=== PATIENT | male | born 1945 | race Caucasian/White ===

== ENCOUNTER 2019-05-25 08:04 | Inpatient (IN) | payer OTHER, MEDICARE ==
--- NOTE | 2019-05-13 09:36 | PREOP ---
DATE OF SURGERY: 06/25/2019 DATE OF DICTATION: 03/29/2019 REASON FOR SURGERY: Chronically incarcerated ventral hernia. BRIEF HISTORY: This is a 74-year-old gentleman who for the past year has had a known chronically incarcerated ventral hernia. The patient states it has gotten a little bit larger and he now wishes to have this repaired. He also states it occasionally causes discomfort at times. He has had no change in bowel habits and no nausea or vomiting. No bouts of sharp pain. PAST MEDICAL HISTORY: No coronary artery disease, hypertension or diabetes. PAST SURGICAL HISTORY: Knee surgery in . ALLERGIES: None. MEDICATIONS: Norvasc and Lisinopril. SOCIAL HISTORY: Patient does not smoke. He drinks socially. No history of drug use. PHYSICAL EXAMINATION: Abdomen: Soft, nontender, and nondistended. He has an upper midline diastasis of moderate size. He has a chronically incarcerated ventral hernia in the midline. Defects are not appreciated due to its chronically incarcerated nature. Visually, the hernia is at least the size of a golf ball. IMPRESSION/PLAN: Chronically incarcerated ventral hernia. This is a 74-year- old gentleman with a known chronically incarcerated ventral hernia. It is becoming more symptomatic and therefore he wishes to have this repaired. We have discussed the various surgical approaches, such as laparoscopic, robotic and open. Will plan for an open repair of this hernia and component separation. We have discussed the pros and cons of using mesh in this operation and given the defect size he will need mesh and the patient has agreed to mesh as well. The indications, alternatives, and complications of the procedure were discussed. Questions answered. We will plan to obtain written consent on the day of surgery. Alejandro GAR [id number] cc: Dr. Josué DUBOSE
[2019-05-24 09:49] VITALS: BMI 24.3
[2019-05-25] MEDS ORDERED: TAMSULOSIN HCL 0.4 MG CAP ONE (08:24)
[2019-05-25] MEDS ORDERED: ceFAZolin SODIUM 1 GM VIAL ONE ×2 (08:25→09:33)
[2019-05-25] MEDS ORDERED: TAMSULOSIN HCL 0.4 MG CAP PO ONE (08:30)
[2019-05-25] MEDS ORDERED: DEXAMETHASONE SOD PHOSPHATE 4 MG/1 ML VIAL ONE (09:33)
[2019-05-25] MEDS ORDERED: LIDOCAINE HCL/PF 2% SDV 5ML VIAL ONE (09:33)
[2019-05-25] MEDS ORDERED: PROPOFOL 20 ML ONE (09:33)
[2019-05-25] MEDS ORDERED: VECURONIUM BROMIDE 10 MG/10 ML VIAL ONE (09:33)
[2019-05-25] MEDS ORDERED: KETAMINE HCL 200 MG/20 ML VIAL ONE (09:33)
[2019-05-25] MEDS ORDERED: ROCURONIUM BROMIDE 50 MG/5 ML SYRINGE ONE (09:33)
[2019-05-25] MEDS ORDERED: ROPIVACAINE HCL 0.5% 30ML VIAL ONE (09:34)
[2019-05-25] MEDS ORDERED: MIDAZOLAM HCL 2 MG/2 ML SINGLE DOSE VIAL ONE ×2 (09:35)
[2019-05-25] MEDS ORDERED: DEXAMETHASONE SOD PHOSPHATE/PF 10 MG/ML SDV ONE (09:38)
[2019-05-25] MEDS ORDERED: ACETAMINOPHEN 325 MG TABLET (FP) PO PRN (10:08)
[2019-05-25] MEDS ORDERED: morphine SULFATE 4 MG/ML VIAL IVPB PRN (10:08)
[2019-05-25] MEDS ORDERED: IBUPROFEN 800 MG/8 ML IJ IVPB PRN (10:10)
[2019-05-25] MEDS ORDERED: D5-1/2NS+20 MEQ KCL - 20 MEQ/1,000 ML INFUS.BAG IV SCH (10:15)
[2019-05-25] MEDS ORDERED: ceFAZolin SODIUM 1 GM VIAL IVPB ONE (10:15)
[2019-05-25] MEDS ORDERED: KETOROLAC TROMETHAMINE 30 MG/1 ML VIAL ONE (10:17)
[2019-05-25] MEDS ORDERED: EPHEDRINE SULFATE/0.9% NACL/PF 50 MG/10 ML SYRINGE NR ONE (10:20)
[2019-05-25] MEDS ORDERED: GLYCOPYRROLATE 0.2 MG/1 ML VIAL ONE ×2 (11:00→11:04)
[2019-05-25] MEDS ORDERED: NEOSTIGMINE METHYLSULFATE 0.5 MG/ML - 10 ML MDV ONE (11:03)
--- NOTE | 2019-05-25 12:46 | HP ---
DATE OF ADMISSION: 05/25/2019 BRIEF HISTORY: This is a 73-year-old gentleman with a known ventral hernia. He is here for operative repair today. This H&P is being redictated due to [facility] guidelines. Refer to my original H&P from March for complete details. PAST MEDICAL HISTORY: Hypertension and hyperlipidemia. Denies diabetes. PAST SURGICAL HISTORY: Knee surgery. ALLERGIES: None. MEDICATIONS: Norvasc, lisinopril, atorvastatin and amlodipine. SOCIAL HISTORY: Drinks socially, does not smoke. PHYSICAL EXAMINATION: Abdomen: Soft, nontender, nondistended. He has a chronically incarcerated ventral hernia in the midline. The skin overlying the hernia is thin. The defect was not appreciated due to its chronically incarcerated nature. IMPRESSION/PLAN: Chronically incarcerated ventral hernia. Patient is here for operative repair with mesh and component separation as needed. UZAIR MORAN M.D. [id number] cc: Ese Mejia M.D. [facility] [address] [place] [id number] [facility]
[2019-05-25] MEDS ORDERED: LACTATED RINGERS SOLUTION 1,000 ML IV SCH (14:30)
[2019-05-25] MEDS: oxyCODONE HCL 5 MG TABLET PO PRN ×2 (18:35→22:28)
[2019-05-26 09:22] VITALS: BP 144/79; PULSE 77; TEMP 98.4
[2019-05-26] MEDS ORDERED: PANTOPRAZOLE SODIUM 40 MG VIAL IVPUSH SCH (10:00)
[2019-05-26] MEDS ORDERED: amLODIPine BESYLATE 10 MG TABLET (FP) PO SCH (10:00)
[2019-05-26] MEDS ORDERED: ENOXAPARIN NA (PORCINE) 40 MG/0.4 ML DISP.SYRIN SQ SCH (10:00)
[2019-05-26] MEDS ORDERED: LISINOPRIL 20 MG TABLET (FP) PO SCH (10:00)
[2019-05-26] MEDS ORDERED: metoPROLOL SUCCINATE 25 MG TAB.SR.24H (FP) PO SCH (10:00)
--- NOTE | 2019-05-26 10:44 | OP ---
DATE OF OPERATION: 05/25/2019 PREOPERATIVE DIAGNOSIS: Chronic incarcerated ventral hernia. POSTOPERATIVE DIAGNOSIS: Chronic incarcerated ventral hernia. PROCEDURE: Open bilateral component-separation; repair of complex, chronically incarcerated ventral hernia; partial omentectomy. SURGEON: Adelfo Jurado MD FAMILY ASSESSMENT WORKER: Ian Robbins DO ANESTHESIA: SUZIE Lema (general). ESTIMATED BLOOD LOSS: Minimal. SPECIMEN: Portion of omentum. INDICATION FOR PROCEDURE: This is a 73-year-old gentleman who has a chronically incarcerated ventral hernia that is causing him discomfort. He wished to have this repaired. Patient identified and appropriately positioned on the operating room table. After placement of general anesthesia, the abdomen was prepped and draped in the usual sterile fashion with ChloraPrep. A midline incision was made, deepened through the subcutaneous tissue overlying the hernia. The hernia dissected free from the subcutaneous tissue down to the level of the fascia. The hernia sac opened. It was a slider containing incarcerated omentum. The omentum was serially clamped, divided, and tied with 3-0 chromic sutures as needed. Next, the right retrorectus space identified by dividing the posterior sheath sharply. The posterior rectus space developed by blunt dissection out laterally toward the perforating vessels. Just medial to the perforating vessels, the fascia of the transversus was sharply divided from the obliques and rectus, creating a myofascial separation. This was done approximately 5 inches above and below the actual defect. Once the myofascial separation was completed on the right side, similar approach was used on the left side. The left posterior rectus space was entered by dividing the left rectus posterior sheath. The muscle was off the posterior sheath bluntly, and this was developed out laterally. Just medial to the perforating vessels, again, the myofascial separation was performed by dividing the transversus away from the obliques and rectus. This allowed the transversus to be pulled medially without tension. Again, this was taken approximately 5 inches above and below the actual defect. Next, the transversus was sewn together in the midline with a running 3-0 Maxon suture. The posterior rectus space irrigated. The operative field noted to be hemostatic. A large, 15 x 30, piece of Versatex was cut to the appropriate size along with a 10 x 12 piece of LEE ANN Bio. The 2 pieces of mesh were sewn together in a hybrid fashion with interrupted 3-0 Vicryl suture. The mesh itself was placed in a retrorectus location with the barbs of the mesh directly behind the rectus, and then, mesh was anchored with AbsorbaTack anchors. The mesh irrigated. The operative field noted to be hemostatic. Midline fascia reapproximated with an interrupted 0 PDS suture. The subcutaneous space irrigated and the skin closed with rodolfo, followed by Dermabond. At the conclusion of the case, sponge counts correct. ATTESTATION: A brief operative note handwritten on the preprinted form. [facility] queried prior to giving narcotics. Alejandro GAR [id number] cc: Dr. Ese Browning
--- NOTE | 2019-05-26 13:24 | DS ---
DATE OF ADMISSION: 05/25/2019 DATE OF DISCHARGE: 05/26/2019 ADMITTING DIAGNOSIS: Complex ventral hernia. DISCHARGE DIAGNOSIS: Complex ventral hernia. BRIEF HISTORY: This is a 73-year-old male who presented to [facility] for surgical management of a complex ventral hernia. Please reference Dr. Adelfo Jurado's operative report from May 25. This hernia was repaired utilizing component separation and mesh. The patient was admitted to the hospital. He had morphine and oxycodone as needed. He was placed on his usual home medications for blood pressure including metoprolol, Norvasc and lisinopril. He is being discharged home today, May 26. He is tolerating regular diet. He is ambulating. He is voiding. His pain is well controlled with oral narcotics. He will go home with a new prescription for Percocet which he will take as needed for pain. He will resume his usual home medications. He has no dressing except for Dermabond and therefore he is able to shower. He will not lift more than 20 pounds. He is okay to walk. He is okay to drive. He is okay to climb stairs. He will wear a binder when he is not in bed. At the time of his discharge he is afebrile. He will follow with Dr. Jurado in approximately 2 weeks time to be evaluated for staple removal. DO LOVE MEYERS/[id number]
--- NOTE | 2019-05-26 16:52 | PATH ---
Surgical Pathology Report Patient Name: TABITHA HUDSON Med. Rec. #: [id number] /Age/Gender: 1945 (Age: 73) / M Account: [id number] Location: [facility] MED/SURG Taken: 05/25/2019 Received: 05/25/2019 Reported: 05/26/2019 Physicians: Adelfo Jurado Specimen(s) Received PORTION OF OMENTUM AND HERNIA SAC Clinical History Bilateral ventral hernia without obstruction Final Diagnosis PORTION OF OMENTUM AND HERNIA SAC, OPEN BILATERAL COMPONENT SEPARATION, HERNIA REPAIR, OMENTECTOMY: HERNIA SAC AND OMENTAL ADIPOSE TISSUE. Electronically Signed Mansi Perez M.D. Gross Description Received in formalin labeled "portion of omentum with hernia sac," is a 7.7 x 5.0 x 1.5 cm portion of yellow, lobulated adipose tissue which is partially surfaced by hernandez-pink fibromembranous tissue, consistent with a hernia sac. Sectioning reveals homogeneous yellow, lobulated adipose tissue. No areas of hemorrhage or necrosis are identified. Author'S Agent sections are submitted in one cassette. /05/25/2019 saudi/05/25/2019
== END 2019-05-26 11:20 | disposition home or self-care (01) | DRG 355 ==
LOC: JASU-SURG 08:04 → JSAMEDAYSX 10:08 → J8W 18:14
PROVIDERS: ADMIT Obstetrics & Gynecology; ATTEND Surgery
PROC: 0DBU0ZZ Excision of Omentum, Open Approach (ICD-10-PCS; 2019-05-25)
PROC: 0WUF0JZ Supplement Abdominal Wall with Synthetic Substitute, Open Approach (ICD-10-PCS; principal; 2019-05-25 09:30)
DX: K43.6 Other and unspecified ventral hernia with obstruction, without gangrene (principal); I10 Essential (primary) hypertension; E78.5 Hyperlipidemia, unspecified
CPT/HCPCS: 94760